=== PATIENT | female | born 1955 | race Caucasian/White ===

== ENCOUNTER 2020-06-04 18:50 | Outpatient (CLI) | payer SELFPAY ==
[2020-06-04 19:19] LABS: Basophils % 0.5 %; Eosinophils # 0.1 10^3/uL (0.0-0.8); Eosinophils % 1.3 %; Hematocrit 37.5 % (37.0-47.0); Lymphocytes # 1.7 10^3/uL (0.8-4.8); Lymphocytes % 26.4 %; Mean Corpuscular Hemoglobin 31.3 pg (28.0-34.0); Mean Corpuscular Volume 97.7 fL (81-99); Mean Platelet Volume 11.7 fL (7.4-10.4); Monocytes # 0.5 10^3/uL (0.2-0.9); Monocytes % 7.8 %; Neutrophils # 4.07 10^3/uL (1.8-7.7); Neutrophils % 63.8 %; Nucleated Red Blood Cells % 0 %; Platelet Count 226 10^3/cmm (130-400); Red Blood Count 3.84 10^6/uL (4.1-5.3); Red Cell Distribution Width 12.6 % (12.1-15.1); White Blood Count 6.4 10^3/uL (4.0-10.0)
[2020-06-04 21:30] LABS: Alanine Aminotransferase 9 U/L (0-33); Albumin Level 4.5 g/dL (3.5-5.2); Alkaline Phosphatase 77 IU/L (35-105); Anion Gap 13.1 (5-19); Aspartate Amino Transferase 17 U/L (0-32); Blood Urea Nitrogen 18 mg/dL (8-23); Calcium 9.2 mg/dL (8.5-10.5); Carbon Dioxide 26 mmol/L (22-29); Chloride 104 mmol/L (98-107); Globulin 2.6 g/dL (1.3-4.6); Glomerular Filtration Rate 62.8 mL/min (90-130); Glucose 98 mg/dL (65-115); Osmolality Calculated 284 mOsm/kg (285-295); Potassium 4.1 mmol/L (3.5-5.1); Sodium 139 mmol/L (136-145); Total Bilirubin 0.3 mg/dL (0.15-1.2); Total Protein 7.1 g/dL (6.6-8.7)
[2020-06-04 21:42] LABS: Uric Acid 4.3 mg/dL (2.4-5.7)
== END 2020-06-04 18:51 | disposition home or self-care (01) ==
LOC: LAB 18:51
PROVIDERS: Visit Provider General Practice
DX: Z00.00 Encounter for general adult medical examination without abnormal findings (principal)
CPT/HCPCS: 80053; 84550; 85025

== ENCOUNTER → 2021-09-27 10:50 | Outpatient (BNVA) | payer OTHER, SELFPAY | PROVIDERS: Visit Provider Nurse Practitioner | DX: Z20.822 Contact with and (suspected) exposure to COVID-19 (principal) | CPT/HCPCS: 87635 ==

== ENCOUNTER → 2022-03-18 08:39 | Outpatient (BNVA) | payer MEDICAID, SELFPAY | PROVIDERS: PCP Family Medicine; Visit Provider Family Medicine | DX: I10 Essential (primary) hypertension (principal); Z91.030 Bee allergy status; K21.9 Gastro-esophageal reflux disease without esophagitis; J30.89 Other allergic rhinitis | CPT/HCPCS: 80053; 80061; 82043; 85025 ==

== ENCOUNTER 2022-04-07 08:58 | Outpatient (CLI) | payer MEDICAID, SELFPAY ==
[2022-04-07 09:14] VITALS: BMI 24.7
--- NOTE | 2022-04-07 09:14 | ECG_ITS ---
[facility] Test Date: 2022-04-07 Pat Name: Divya Ta Department: Room: Gender: Female Driving Instructor: Ludmila Willis : 1955 Requested By: Jillian Carlos Order Number: [id number] Brenden MD: Lidia Cannon M.D. Interpretive Statements NAME OF STUDY: EXERCISE SESTAMIBI STRESS TEST INDICATION: Atypical Chest Pain Baseline blood pressure of 172/82 mm Hg, heart rate of 84 beats per minute and oxygen saturation of 91%. EKG showed sinus rhythm with PAC's. LBBB. ??? The patient exercised for 2 minutes and 58 seconds on a [standard Micheal protocol]. Patient attained a maximum heart rate of 162 beats per minute( 105 % of the maximum predicted heart rate) with a blood pressure at the peak exercise of 235/80 mm Hg and oxygen saturation of 98%. The EKG at the peak exercise revealed sinus tachycardia with LBBB. Patient did not have any significant arrhythmis with the exercise. Patient developed chest pain 1 min 50 seconds into exercise that resolved in recovery. During the recovery phase, there were no new changes. ??? Blood pressure at the end of the recovery phase was 169/82 mm Hg with a heart rate of 79 beats per minute and oxygen saturation of 95%. ??? CONCLUSION: 1. Uninterpretable EKG response to treadmill exercise d/t baseline LBBB. 2. No exercise-induced cardiac arrhythmia. Patient did have chest pain during exercise. 3. Baseline hypertension with hypertensive response and exagerrated heart rate response to exercise. 4. Decreased exercise tolerance, attained a maximum of 4.6 METs. 5. Perfusion portion of the study will be reported separately. Electronically Signed On 04-17-2022 18:04:08 CDT by Lidia Cannon M.D. [id number]
--- NOTE | 2022-04-07 09:15 | NMCV_ITS ---
NM yoni perf SPECT r/s* [id number] Divya Ta Age: 66 Gender: F : 1955 Exam Date: 04/07/2022 09:15 Ordering Phys: Jillian Carlos DO Technologist: MARYANN Medina Exam Location: [facility] Indications: CHEST PAIN STRESS TEST Please see separate stress test report in [facility] for full findings IMAGE PROTOCOL Rest/Stress 1 Radiopharmaceutical Dose (mCi) Administration Site Administered by Rest: Tc-99m 10.7 IV MARYANN Maddox Sestamibi Stress:Tc-99m 32.7 IV MARYANN Maddox Sestamibi Rest: 07-Apr-2022 60 Discovery 630 Stress: 07-Apr-2022 15 Discovery 630 Radiopharmaceutical was injected at 103% maximum heart rate. Images obtained in supine and prone position. SPECT RESULTS Technical Quality: Excellent Raw Data Analysis: Normal Image Corrections: No attenuation or motion correction applied Summed Stress Score: 0 Summed Rest Score: 0 Summed Difference Score: 0 PERFUSION FINDINGS SPECT images demonstrate homogeneous tracer distribution throughout the myocardium. FUNCTIONAL RESULTS (calculated via Gated SPECT) Stress Image LV EF (%): 53 Stress EDV (mL):112 TID: 0.91 Stress ESV (mL):53 FUNCTIONAL FINDINGS: The left ventricle is normal in size. Transient Ischemia Dilatation of 0.91. The left ventricular ejection fraction is low normal with a value of 53%. There is normal left ventricular wall thickening. IMPRESSIONS 1. Myocardial perfusion imaging is normal. 2. Overall left ventricular systolic function is low normal without regional wall motion abnormalities, LVEF=53%. 3. EKG portion of the study will be reported separately. Lidia Cannon MD (Electronically Signed) Final Date: 17 April 2022 18:37 S
[2022-04-07 11:08] VITALS: BP 169/82; PULSE 77
== END 2022-04-07 08:59 | disposition home or self-care (01) ==
LOC: CDL 09:00
PROVIDERS: PCP Family Medicine; Visit Provider Family Medicine
DX: R06.02 Shortness of breath (principal)
CPT/HCPCS: 78452; 93017; A9500

== ENCOUNTER → 2022-05-31 14:04 | Outpatient (BNVA) | payer MEDICAID, SELFPAY | PROVIDERS: PCP Family Medicine; Visit Provider Internal Medicine Cardiovascular Disease | DX: R07.89 Other chest pain (principal); R94.31 Abnormal electrocardiogram [ECG] [EKG]; I10 Essential (primary) hypertension; R06.09 Other forms of dyspnea | CPT/HCPCS: 93005; 99204 ==

== ENCOUNTER → 2022-06-16 11:18 | Outpatient (BNVA) | payer MEDICAID, SELFPAY | PROVIDERS: PCP Family Medicine; Visit Provider Family Medicine | DX: E78.5 Hyperlipidemia, unspecified (principal); J30.89 Other allergic rhinitis; D17.1 Benign lipomatous neoplasm of skin and subcutaneous tissue of trunk; E78.00 Pure hypercholesterolemia, unspecified; I10 Essential (primary) hypertension | CPT/HCPCS: 80053; 80061 ==

== ENCOUNTER 2022-08-02 13:05 | Outpatient (CLI) | payer MEDICAID, SELFPAY ==
--- NOTE | 2022-08-02 13:30 | USCV_ITS ---
Divya Ta Age: 67 Gender: F : 1955 Exam Date: 08/02/2022 13:22 Ordering Phys: Nat Goldstein MD ([email or web address]) Technologist: Brodie Espinoza [place] [facility] [place]: ? ef BP: 150 / 80 HR: 70 Rhythm: Sinus Technical Quality: Adequate MEASUREMENTS (Male / Female) Normal Values 2D ECHO LV Diastolic Diameter PLAX 4.8 cm 4.2 - 5.9 / 3.9 - 5.3 cm IVS Diastolic Thickness 1.1 cm 0.6 - 1.0 / 0.6 - 0.9 cm LVPW Diastolic Thickness 1.1 cm 0.6 - 1.0 / 0.6 - 0.9 cm LVOT Diameter 2.0 cm LV Ejection Fraction MOD 2C 59.2 % LV Ejection Fraction 2C AL 58.8 % LA Diameter 3.3 cm M-MODE Aortic Annulus Diameter 3.1 cm LA Ao Ratio MM 1.2 MV E Point Septal Separation 1.6 cm DOPPLER AV Peak Velocity 123.0 cm/s LVOT Peak Velocity 76.0 cm/s AV Area Cont Eq vti 2.4 cm squared AV Area Cont Eq pk 1.9 cm squared MV Area PHT 5.0 cm squared Mitral E to A Ratio 0.5 MV E' Velocity 27.0 cm/s Mitral E to MV E' Ratio 5.8 Mitral E to LV E' Lateral Ratio 5.4 Mitral E to LV E' Septal Ratio 6.4 TR Peak Velocity 218.3 cm/s TR Peak Gradient 19.1 mmHg TV Peak E Velocity 113.0 cm/s Right Atrial Pressure 3.0 mmHg Pulmonary Artery Systolic Pressu 22.1 mmHg RV Acceleration Time 0.1 s FINDINGS Left Ventricle Normal LV size with diminished ejection fraction of 45 to 50%, visual.mild left ventricular hypertrophy. Abnormal septal motion consistent with conduction abnormality. Grade I/IV diastolic dysfunction (abnormal relaxation filling pattern), normal to mildly elevated filling pressures. Right Ventricle Normal right ventricular size and systolic function. Right Atrium Normal right atrial size. Left Atrium Normal left atrial size. Mitral Valve Thickened mitral valve. Moderate mitral valve regurgitation. Aortic Valve Thickened aortic valve. Tricuspid Valve Trace to mild tricuspid valve regurgitation. Pulmonic Valve Pulmonic valve not well visualized. Pericardium No pericardial effusion. Aorta Normal aortic annulus size. IVC Normal inferior vena cava. CONCLUSIONS Normal LV size with diminished ejection fraction of 45 to 50%, visual.mild left ventricular hypertrophy. Abnormal septal motion consistent with conduction abnormality. Grade I/IV diastolic dysfunction (abnormal relaxation filling pattern), normal to mildly elevated filling pressures. Thickened mitral valve. Moderate mitral valve regurgitation. Thickened aortic valve. Trace to mild tricuspid valve regurgitation. Estimated pulmonary artery peak systolic pressure 22 mmHg There is no pericardial effusion. There are no intracardiac masses. No similar previous studies are available for comparison Dr Nat Goldstein MD [facility] (Electronically Signed) Final Date: 03 August 2022 10:06 S
== END 2022-08-02 13:06 | disposition home or self-care (01) ==
LOC: RAD 13:07
PROVIDERS: PCP Family Medicine; Visit Provider Internal Medicine Cardiovascular Disease
DX: R06.09 Other forms of dyspnea (principal); I08.3 Combined rheumatic disorders of mitral, aortic and tricuspid valves
CPT/HCPCS: 93306

== ENCOUNTER → 2022-09-08 11:06 | Outpatient (BNVA) | payer MEDICAID, SELFPAY | PROVIDERS: PCP Family Medicine; Visit Provider Nurse Practitioner Family | DX: I10 Essential (primary) hypertension (principal) | CPT/HCPCS: 99213 ==

== ENCOUNTER 2022-10-26 08:09 | Outpatient (CLI) | payer MEDICAID, SELFPAY ==
--- NOTE | 2022-10-26 08:25 | FL_ITS ---
WS: [id number] FL barium swallow [id number] REASON FOR EXAM: DYSPHAGIA/GASTRO ESOPHAGEAL REFLUX DZ W/O ESOPHAGITIS FLUOROSCOPY TIME: 1min [id number] # OF SPOT FILMS: Multiple FINDINGS: Patient was evaluated in the upright AP and lateral positions and in the prone JIMENEZ position. The swallowing of barium from the oropharynx to the fundus of the stomach was evaluated fluoroscopica lly and documented with multiple spot films. Normal motility of the cervical esophagus. No aspiration. Normal thoracic esophagus with normal motility and no extrinsic or intrinsic mass effect. Area small sliding hiatal hernia with no stricture. No reflux demonstrated. FL/FL barium swallow [id number] IMPRESSION: No significant abnormality of the esophagus.
--- NOTE | 2022-10-26 08:25 | CT_ITS ---
WS: [id number] CT NECK TECHNIQUE: Contrast-enhanced CT of the neck with coronal and sagittal reformatted images. CLINICAL INFORMATION: DYSPHAGIA/GASTRO ESOPHAGEAL REFLUX DZ COMPARISON: None. DLP: 169.[address] scans at [facility] use at least one of these dose optimization techniques: automated e xposure control; mA and/or kV adjustment per patient size (includes targeted exams where dose is matc hed to clinical indication); or iterative reconstruction. FINDINGS: Parotid glands are normal. Normal submandibular glands. Normal posterior nasopharynx. Normal paraphar yngeal fat. Normal thyroid gland. Fibrosis in the lung apices. Normal posterior nasopharynx. Normal p arapharyngeal fat. Normal submandibular glands. Normal parotid glands. No evidence of supraglottic or glottic mass. Normal vallecula and piriform sinuses. Normal subglottic airway.Slight anterolisthesis C4 on C5. Prominent retromandibular and anterior jugular vein. No cerv ical lymphadenopathy. CT/CT neck w con* [id number] IMPRESSION: 1. No evidence of supraglottic or glottic mass. 2. Normal salivary glands. 3. Normal thyroid gland. 4. No cervical lymphadenopathy. 5. No acute neck findings.
[2022-10-26] MEDS: iohexol 350 mg/mL 500 mL Btl (per mL) IV (10:47)
[2022-10-26 10:48] LABS: Blood Urea Nitrogen 12 mg/dL (8-23); Glomerular Filtration Rate 62.3 mL/min (90-130)
== END 2022-10-26 08:10 | disposition home or self-care (01) ==
LOC: RAD 08:10
PROVIDERS: PCP Family Medicine; Visit Provider Otolaryngology
DX: R13.10 Dysphagia, unspecified (principal); K21.9 Gastro-esophageal reflux disease without esophagitis
CPT/HCPCS: 70491; 74220; 82565; 84520; Q9967

== ENCOUNTER → 2022-12-20 10:04 | Outpatient (BNVA) | payer MEDICAID, SELFPAY | PROVIDERS: PCP Family Medicine; Visit Provider Internal Medicine Cardiovascular Disease | DX: I10 Essential (primary) hypertension (principal); R06.09 Other forms of dyspnea; E78.00 Pure hypercholesterolemia, unspecified; I42.8 Other cardiomyopathies | CPT/HCPCS: 99214 ==

== ENCOUNTER 2023-04-23 22:44 | Emergency (ER) | payer MEDICAID, SELFPAY ==
[2023-04-23 22:47] VITALS: BP 194/106; PULSE 82; RESP 16; TEMP 36.5; O2SAT 100; BMI 21.9
--- NOTE | 2023-04-23 23:22 | ED_ITS ---
HPI - Animal Bite General: Chief Complaint: Animal Bite Stated Complaint: Left Arm Cat Bite Time Seen by Provider: 04/23/23 23:22 History of Present Illness: 67-year-old female comes in today for complaints of injury to the left hand when her cat that she was carrying tail got shut in the door causing it to bite down on her left hand. Patient sustained a laceration to the palm of the left hand at the base of the index finger. Patient has normal movement of the finger. Patient reports that her tetanus is up-to-date. Patient has a history of hypertension, high cholesterol and allergies. Review of Systems General: Reports: 10 or more systems reviewed and unremarkable except in HPI and below Musc: Reports: extremity pain Skin/Breast: Reports: new lesions PFSH ED PFSH: Medical History Allergic rhinitis due to allergen Excessive cerumen in both ear canals Surgical History History of bladder repair surgery Dr. Hull History of hernia repair Ventral History of hysterectomy History of repair of right rotator cuff Family History Other CAD (coronary artery disease) Cancer Lung disease Denies family history of Diabetes Clotting disorder Dementia Hyperlipidemia Psychiatric illness Chronic kidney disease (CKD) Suicide Anesthesia complication Bleeding disorder Family history of premature coronary artery disease Hypertension Stroke Social History Smoking and tobacco status: never smoked Alcohol intake: never Physical Exam Const: COMMON NORMALS: alert HENMT: COMMON NORMALS: normocephalic HEAD & SCALP: normocephalic Resp: COMMON NORMALS: normal respiratory effort and clear to auscultation bilaterally AUSCULTATION: clear to auscultation bilaterally Cardio: COMMON NORMALS: regular rate RATE: regular rate Back/Pelvis: COMMON NORMALS: thoracic and lumbar spine normal to inspection Extremity: LEFT UPPER EXTREMITY: Yes lower arm (2 linear scratches approximately 6 cm each) and Yes hand & digits (Irregular laceration approximately 2 cm) Left hand and digits: Yes inspection, Yes palpation, Yes ROM, Yes neurovascular exam and Yes tendon exam Neuro: SENSORIUM/ORIENTATION: Yes alert Skin: TRAUMA: abrasion (Left forearm) and laceration (Left hand) Procedures Laceration Laceration 1: Site: hand Side (If applicable): left Size (cm): 2 Description: irregular Local Anesthetic: lidocaine 1% Amount of anesthesia used (mL): 4 Pre-repair: wound explored and irrigated extensively Skin layer closed with: nylon Size (cm): 5-0 Number of sutures: 3 Technique: simple, interrupted Course Vital Signs: Vital signs: Vital Signs Temperature 97.7 F 04/23/23 22:47 Pulse Rate 82 04/23/23 22:47 Respiratory Rate 16 04/23/23 22:47 Blood Pressure 194/106 04/23/23 22:47 Pulse Oximetry 100 04/23/23 22:47 Oxygen Delivery Me thod Room Air 04/23/23 22:47 MDM - Animal Bite Medical Decision Making 67-year-old female comes in today with laceration sustained from a cat bite. Patient has an irregular laceration to the left palm at the base of the index finger. Normal range of motion is noted. No foreign body was noted. Diffe rential diagnosis includes not limited to fracture, foreign body, laceration, need for prophylaxis antibiotics.X-ray noted no obvious fracture but did recommend repeat films in 7 to 14 days as needed. Wound was thoroughly irrigated and closed with sutures loosely. Patient was recommended to follow-up with primary care in 3 to 5 days for recheck. Return to ED for worsening symptoms. Patient reported understanding of care plan and need for follow-up or return. Lab Data Radiology Impressions Hand X-Ray 04/23/23 23:53 IMPRESSION: 1. Linear lucencies seen at the lateral base of the 2nd proximal phalanx and the medial base of the 4th proximal phalanx on the AP image only, possible fractures cannot be ruled out. Followup imaging recommended in 7-14 days if clinical concern for fracture persists. 2. Soft tissue emphysema and mild soft tissue swelling at the proximal left 2nd finger. 3. Incidental/nonacute findings are listed in the report. Discharge Plan Discharge Patient Disposition: Home Clinical Impression: Cat bite Qualifiers: Encounter type: initial encounter Qualified Code(s): W55.01XA - Bitten by cat, initial encounter Condition: Stable Prescriptions: New amoxicillin-pot clavulanate 875-125 mg tablet 1 tab PO BID Qty: 14 0RF hydrocodone-acetaminophen 5-325 mg tablet 1 tab PO Q6H PRN (Reason: pain (scale score 7-10)) Qty: 10 0RF No Action carvedilol 3.125 mg tablet 3.125 mg PO BID Qty: 180 1RF Rx Instructions: must administer with a meal/food epinephrine [EpiPen 2-Ulysses] 0.3 mg/0.3 mL auto-injector 0.3 mg IM Q4H PRN (Reason: anaphylaxis) Qty: 2 1RF fluticasone propionate 50 mcg/actuation spray,suspension 1 spray intranasal BID Qty: 16 3RF Rx Instructions: Please dispense a 90 day supply losartan 50 mg tablet 50 mg PO DAILY Qty: 90 1RF atorvastatin 40 mg tablet 40 mg PO DAILY Qty: 90 1RF nifedipine 30 mg tablet extended release 24hr See Rx Instructions .ROUTE .COMPLEX Qty: 30 1RF Dose Instruction: TAKE ONE TABLET BY MOUTH DAILY Rx Instructions: TAKE ONE TABLET BY MOUTH DAILY Discharge Orders: Discharge ED (Routine); Ordered 04/24/23 Ordered By: David Tucker Referrals: Jillian Carlos DO [Primary Care Provider] - Discharge Diet: Usual diet Discharge Activity: Increase activity as tolerated Patient Instructions: Laceration (ED) Activity Restrictions/Additional Instructions: Keep wound clean and dry. You may change the dressing only if it is soiled or wet. Otherwise, it is important keep the wound as clean and dry as possible for the next 48 hours. After that she can wash the wound with some mild soap and water and recover. Take antibiotics as directed. Follow-up with primary care for further instructions. Return to emergency department for new concerns. Sutures need to come out in 7 to 10 days. Coding Level of Care Code ED Business Services Coordinator for Carmen Cedeno
--- NOTE | 2023-04-23 23:53 | XRR_ITS ---
PROCEDURE INFORMATION: Exam: XR Left Hand Exam date and time: 04/24/2023 12:20 AM Age: 67 years old Clinical indication: Injury or trauma; Puncture; Left; Index finger; Patient HX: Cat bite to volar surface of hand at base of 2nd mcp joint. TECHNIQUE: Imaging protocol: Radiologic exam of the left hand. Views: 3 or more views. COMPARISON: No relevant prior studies available. FINDINGS: Bones/joints: Linear lucencies seen at the lateral base of the 2nd proximal phalanx and the medial base of the 4th proximal phalanx on the AP image only, possible fractures cannot be ruled out. No dislocation. Bones are mildly osteopenic. Soft tissues: Soft tissue emphysema and mild soft tissue swelling at the proximal left 2nd finger. No radiopaque foreign body. XR/XR hand LT min 3V* [id number] IMPRESSION: 1. Linear lucencies seen at the lateral base of the 2nd proximal phalanx and the medial base of the 4th proximal phalanx on the AP image only, possible fractures cannot be ruled out. Followup imaging recommended in 7-14 days if clinical concern for fracture persists. 2. Soft tissue emphysema and mild soft tissue swelling at the proximal left 2nd finger. 3. Incidental/nonacute findings are listed in the report.
[2023-04-24] MEDS: ceFAZolin 1,000 MG in water for injection-sterile 2.5 ML 2.5 MG IM (00:13)
[2023-04-24] MEDS: HYDROcodone-acetaminophen 7.5-325 mg Tablet 1 TAB PO (00:14)
[2023-04-24] MEDS: bacitracin ointment Pkt 1 EACH TOPICAL (01:18)
[2023-04-24 01:41] VITALS: BP 194/106; PULSE 82; RESP 16; TEMP 36.5; O2SAT 100
== END 2023-04-24 01:42 | disposition home or self-care (01) ==
PROVIDERS: Emergency Provider Nurse Practitioner Family; PCP Family Medicine
DX: S61.452A Open bite of left hand, initial encounter (principal); W55.01XA Bitten by cat, initial encounter
CPT/HCPCS: 12001; 73130; 96372; 99284; J0690

== ENCOUNTER 2023-05-04 16:21 | Outpatient (CLI) | payer MEDICAID, SELFPAY ==
--- NOTE | 2023-05-04 16:36 | XRR_ITS ---
PROCEDURE INFORMATION: Exam: XR Left Hand Exam date and time: 05/04/2023 4:37 PM Age: 67 years old Clinical indication: Injury or trauma; Other: Cat bite; Puncture; Hand; Left; Injury date: 11 days ago; Additional info: Cat bite / index finger swelling TECHNIQUE: Imaging protocol: Radiologic exam of the left hand. Views: 3 or more views. COMPARISON: CR (UP EXM, ) 04/24/2023 12:20 AM FINDINGS: Bones/joints: No fracture is seen with today's exam. Appearance of the base of the 2nd and 4th proximal phalanges with prior exam likely related to appearance of the trabecula. No other significant or acute osseous abnormality. Soft tissues: Suggestion of mild interval decrease in soft tissue swelling with prior exam. No radiopaque soft tissue foreign body density is seen. XR/XR hand LT min 3V* [id number] IMPRESSION: No fracture identified.
== END 2023-05-04 16:22 | disposition home or self-care (01) ==
PROVIDERS: PCP Family Medicine; Visit Provider Family Medicine
DX: M79.89 Other specified soft tissue disorders (principal); W55.01XA Bitten by cat, initial encounter
CPT/HCPCS: 73130

== ENCOUNTER → 2023-08-03 16:47 | Outpatient (BNVA) | payer MEDICAID, SELFPAY | PROVIDERS: PCP Family Medicine; Visit Provider Emergency Medicine | DX: S69.92XA Unspecified injury of left wrist, hand and finger(s), initial encounter (principal); X58.XXXA Exposure to other specified factors, initial encounter | CPT/HCPCS: 73110 ==

== ENCOUNTER → 2023-11-21 15:33 | Outpatient (BNVA) | payer MEDICAID, SELFPAY | PROVIDERS: PCP Family Medicine; Visit Provider Specialist | DX: G56.03 Carpal tunnel syndrome, bilateral upper limbs (principal); M79.642 Pain in left hand; G56.92 Unspecified mononeuropathy of left upper limb | CPT/HCPCS: 95910; 95911 ==

== ENCOUNTER → 2024-01-18 11:31 | Outpatient (BNVA) | payer MEDICARE, SELFPAY | PROVIDERS: PCP Family Medicine; Visit Provider Family Medicine | DX: I10 Essential (primary) hypertension (principal) | CPT/HCPCS: 80053; 80061; 82043; 85025 ==

== ENCOUNTER → 2024-05-15 15:36 | Outpatient (BNVA) | payer MEDICARE, SELFPAY | DX: E78.00 Pure hypercholesterolemia, unspecified (principal); I10 Essential (primary) hypertension | CPT/HCPCS: 80053; 80061 ==

== ENCOUNTER → 2024-06-19 15:00 | Outpatient (BNVA) | payer MEDICARE, SELFPAY | PROVIDERS: Visit Provider Internal Medicine | DX: I10 Essential (primary) hypertension (principal); R06.09 Other forms of dyspnea; E78.00 Pure hypercholesterolemia, unspecified; I42.8 Other cardiomyopathies | CPT/HCPCS: 36415; 80048; 83880; 99214 ==

== ENCOUNTER 2024-07-18 07:25 | Outpatient (CLI) | payer MEDICARE, SELFPAY ==
--- NOTE | 2024-07-18 07:45 | USCV_ITS ---
Divya Ta Age: 69 Gender: F : 1955 Exam Date: 07/18/2024 07:46 Ordering Phys: Richard Alberto M.D ([email or web address]) Technologist: Serenity Chandra [place] [facility] [place] Indication: SHORTNESS OF BREATH BP: 124 / 70 HR: 59 Rhythm: Sinus Technical Quality: Adequate MEASUREMENTS (Male / Female) Normal Values 2D ECHO LV Diastolic Diameter PLAX 5.4 cm 4.2 - 5.9 / 3.9 - 5.3 cm IVS Diastolic Thickness 1.1 cm 0.6 - 1.0 / 0.6 - 0.9 cm IVS Systolic Thickness 1.7 cm LVPW Diastolic Thickness 1.9 cm 0.6 - 1.0 / 0.6 - 0.9 cm LVPW Systolic Thickness 2.0 cm LVOT Diameter 2.0 cm LV Ejection Fraction 2D Teich 65.9 % LV Ejection Fraction MOD 4C 39.3 % LV Ejection Fraction MOD 2C 54.3 % LV Ejection Fraction 2C AL 57.2 % LA Diameter 3.5 cm RA Systolic Volume 4C AL 29.3 ml RA Systolic Volume 4C MOD 28.6 ml LA Sys Volume AL 52.8 cm cubed LA Sys Volume Index AL 31.9 cm cubed/m squared Aorta at Sinotubular Diameter 2.1 cm IVC Diameter 1.1 cm M-MODE LA Ao Ratio MM 1.0 AV Cusp Separation MM 1.4 cm DOPPLER AV Peak Velocity 144.0 cm/s LVOT Peak Velocity 94.0 cm/s AV Area Cont Eq vti 2.1 cm squared AV Area Cont Eq pk 2.1 cm squared MV Peak Velocity 83.0 cm/s MV Area PHT 5.4 cm squared Mitral E to A Ratio 0.9 TR Peak Velocity 250.0 cm/s TR Peak Gradient 25.0 mmHg TR Mean Velocity 217.0 cm/s TR Mean Gradient 20.4 mmHg TR Velocity Time Integral 97.0 cm TV Peak E Velocity 43.0 cm/s Right Atrial Pressure 3.0 mmHg Pulmonary Artery Systolic Pressu 28.0 mmHg PV Peak Velocity 107.0 cm/s RV Ejection Time 0.3 s FINDINGS Left Ventricle Mildly increased left ventricular cavity size. Normal left ventricular wall thickness. Mildly decreased left ventricular systolic function. Global left ventricular hypokinesis. Left ventricular ejection fraction is estimated at 45-50 %. Grade I/IV diastolic dysfunction (abnormal relaxation filling pattern), normal to mildly elevated filling pressures. Right Ventricle The right ventricle is normal in size and function. Right Atrium The right atrium is normal in size. Left Atrium Severely increased left atrial size. Mitral Valve Moderately thickened mitral valve. No mitral valve stenosis. Moderate mitral valve regurgitation. Aortic Valve Mild aortic valve calcification. No aortic valve stenosis. Trace to mild aortic valve regurgitation. Tricuspid Valve Mild tricuspid valve regurgitation. Pulmonic Valve Structurally normal pulmonic valve without significant stenosis. There is no pulmonic regurgitation. Pericardium Normal pericardium without effusion. Aorta Normal ascending aorta dimension. IVC The inferior vena cava appears normal. CONCLUSIONS Mildly increased left ventricular cavity size. Normal left ventricular wall thickness. Mildly decreased left ventricular systolic function. Global left ventricular hypokinesis. Left ventricular ejection fraction is estimated at 45-50 %. Grade I/IV diastolic dysfunction (abnormal relaxation filling pattern), normal to mildly elevated filling pressures. Severely increased left atrial size. Moderately thickened mitral valve. No mitral valve stenosis. Moderate mitral valve regurgitation. There is no pericardial effusion. Pulmonary artery systolic pressure is within normal limits. Right atrial pressure is around 10 mm of mercury. Flaco Vences MD (Electronically Signed) Final Date: 18 July 2024 10:41 S
== END 2024-07-18 07:26 | disposition home or self-care (01) ==
PROVIDERS: Visit Provider Internal Medicine
DX: I08.1 Rheumatic disorders of both mitral and tricuspid valves (principal); I70.0 Atherosclerosis of aorta; R06.02 Shortness of breath
CPT/HCPCS: 93306

== ENCOUNTER → 2024-09-10 15:05 | Outpatient (BNVA) | payer MEDICARE, SELFPAY | DX: R10.9 Unspecified abdominal pain (principal) | CPT/HCPCS: 81000 ==

== ENCOUNTER 2024-09-24 10:27 | Outpatient (CLI) | payer MEDICARE, SELFPAY ==
--- NOTE | 2024-09-24 10:29 | CTR_ITS ---
PROCEDURE INFORMATION: Exam: CT Abdomen With Contrast Exam date and time: 09/24/2024 10:46 AM Age: 69 years old Clinical indication: Other: Left flank pain; Prior surgery; Surgery date: 6+ months; Surgery type: Hyst, hernia, appy TECHNIQUE: Imaging protocol: Computed tomography of the abdomen with contrast. Radiation optimization: All CT scans at this facility use at least one of these dose optimization techniques: automated exposure control; mA and/or kV adjustment per patient size (includes targeted exams where dose is matched to clinical indication); or iterative reconstruction. 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 Liver: Normal. No mass. Gallbladder and biliary ducts: Normal. No calcified stones. No ductal dilation. Pancreas: Normal. No ductal dilation. Spleen: Normal. No splenomegaly. Adrenal glands: Normal. No mass. Kidneys: Normal. No hydronephrosis. Stomach and bowel: Visualized stomach and bowel are unremarkable. No obstruction. No mucosal thickening. Appendix: Appendectomy. Intraperitoneal space: Unremarkable. No free air. No significant fluid collection. Vasculature: Small amount of arterial calcification. Otherwise, unremarkable. Lymph nodes: Unremarkable. No enlarged lymph nodes. Bones/joints: Moderate scoliosis. Minimal spondylosis. Otherwise, unremarkable. Soft tissues: Otherwise, unremarkable visualized body wall. Otherwise, unremarkable soft tissues. CT/CT abdomen w con* [id number] IMPRESSION: 1. No acute findings. 2. Additional details as above.
[2024-09-24 10:48] LABS: Blood Urea Nitrogen 17 mg/dL (8-23); Glomerular Filtration Rate 70.9 mL/min (90-130)
[2024-09-24] MEDS: iohexol 350 mg/mL 500 mL Btl (per mL) IV (10:53)
== END 2024-09-24 10:28 | disposition home or self-care (01) ==
LOC: RAD 10:27
DX: R10.9 Unspecified abdominal pain (principal); M41.34 Thoracogenic scoliosis, thoracic region; Z90.49 Acquired absence of other specified parts of digestive tract; Z90.710 Acquired absence of both cervix and uterus
CPT/HCPCS: 74160; 82565; 84520

== ENCOUNTER → 2024-09-25 13:29 | Outpatient (BNVA) | payer MEDICARE, SELFPAY | PROVIDERS: Visit Provider Internal Medicine | DX: I10 Essential (primary) hypertension (principal); R06.09 Other forms of dyspnea; E78.00 Pure hypercholesterolemia, unspecified; I42.8 Other cardiomyopathies | CPT/HCPCS: 99214 ==

== ENCOUNTER → 2024-10-16 09:44 | Outpatient (BNVA) | payer MEDICARE, SELFPAY | PROVIDERS: Referring Provider Internal Medicine; Visit Provider Internal Medicine | DX: I10 Essential (primary) hypertension (principal); R06.09 Other forms of dyspnea; E78.00 Pure hypercholesterolemia, unspecified; I42.8 Other cardiomyopathies | CPT/HCPCS: 36415; 80048; 83880; 99214 ==

== ENCOUNTER 2024-10-19 11:03 | Emergency (ER) | payer MEDICARE, SELFPAY ==
[2024-10-19 11:06] VITALS: BP 174/77; PULSE 77; RESP 17; TEMP 36.6; O2SAT 97; BMI 23.9
--- NOTE | 2024-10-19 11:07 | CTR_ITS ---
PROCEDURE INFORMATION: Exam: CT Left Lower Extremity, Hip Exam date and time: 10/19/2024 11:20 AM Age: 69 years old Clinical indication: Injury or trauma; Fall; Blunt trauma; Hip; Left TECHNIQUE: Imaging protocol: CT of the left lower extremity without contrast was performed. Exam focused on the hip. Radiation optimization: All CT scans at this facility use at least one of these dose optimization techniques: automated exposure control; mA and/or kV adjustment per patient size (includes targeted exams where dose is matched to clinical indication); or iterative reconstruction. COMPARISON: CT abdomen pelvis w con* [id number] 04/29/2018 12:50 PM RADIATION DOSE METRICS: Total DLP (mGy-cm): 232 FINDINGS: Bones/joints: Normal. No acute fracture or dislocation. No lytic or sclerotic bone lesion. No significant arthritic changes. Soft tissues: Normal. CT/CT hip LT wo con* [id number] IMPRESSION: Unremarkable CT.
--- NOTE | 2024-10-19 11:07 | CTR_ITS ---
PROCEDURE INFORMATION: Exam: CT Lumbar Spine Without Contrast Exam date and time: 10/19/2024 11:20 AM Age: 69 years old Clinical indication: Injury or trauma; Fall; Blunt trauma (contusions or hematomas) TECHNIQUE: Imaging protocol: Computed tomography of the lumbar spine without contrast. Radiation optimization: All CT scans at this facility use at least one of these dose optimization techniques: automated exposure control; mA and/or kV adjustment per patient size (includes targeted exams where dose is matched to clinical indication); or iterative reconstruction. COMPARISON: CT hip LT wo con* [id number] 10/19/2024 11:20 AM RADIATION DOSE METRICS: Total DLP (mGy-cm): 395.5 FINDINGS: Bones/joints: No acute fracture. Moderate osteopenia. Well-maintained disc spaces. No fracture, lytic, or sclerotic bone lesion. Normal alignment. No significant disc bulge or herniation. No severe spinal canal stenosis. No significant neural foraminal narrowing. Soft tissues: The paravertebral soft tissues are normal. CT/CT lumbar spine wo con* [id number] IMPRESSION: No acute findings.
--- NOTE | 2024-10-19 11:10 | ED_ITS ---
HPI - Fall General: Chief Complaint: Back Pain/Injury Stated Complaint: fall/ back pain Time Seen by Provider: 10/19/24 11:05 Source: patient and EMS Mode of arrival: EMS Limitations: no limitations History of Present Illness: 69-year-old female states that she nader ed today in the snow landing on her back. She states this happened just prior to arrival she has pain in her left hip along with her lower back. She is able to walk with assistance but pain was worse with that states pain currently is a 4 out of 10. Associated symptoms-after fall: Denies abdominal pain, chest pain, headache(s) or neck pain Related Data Home Medications Medication Instructions Recorded Confirmed fluticasone propionate 50 1 spray intranasal BID PRN 10/16/24 mcg/actuation nasal spray,suspension Previous Rx's Medication Instructions Recorded epinephrine 0.3 mg/0.3 mL 0.3 mg (0.3 mL) IM Q4H PRN 03/18/22 injection, auto-injector (EpiPen anaphylaxis #2 ea 2-Ulysses) betamethasone dipropionate 0.05 % 1 applic topical BID PRN skin 09/15/23 topical cream irritation #45 grams atorvastatin 40 mg tablet See Rx Instructions .Route 05/16/24 .COMPLEX #90 tabs carvedilol 3.125 mg tablet See Rx Instructions .Route 05/21/24 .COMPLEX #180 tabs nifedipine 30 mg tablet,extended See Rx Instructions .Route 09/01/24 release 24 hr .COMPLEX #90 tabs escitalopram oxalate 10 mg tablet 10 mg PO DAILY #90 tabs 09/10/24 (Lexapro) losartan 50 mg tablet See Rx Instructions .Route 09/10/24 .COMPLEX #90 tabs montelukast 10 mg tablet 10 mg PO DAILY #30 tabs 09/10/24 omeprazole 20 mg capsule,delayed 20 mg PO ONCE #30 caps 09/10/24 release furosemide 20 mg tablet (Lasix) 20 mg PO DAILY #60 tabs 10/17/24 potassium chloride 10 mEq 10 meq PO DAILY #60 caps 10/17/24 capsule,extended release Allergies Allergy/AdvReac Type Severity Reaction Status Date / Time sulfamethoxazole Allergy ALGY-Anaphy Verified 10/16/24 09:57 [From Bactrim] laxis trimethoprim [From Bactrim] Allergy ALGY-Anaphy Verified 10/16/24 09:57 laxis Review of Systems Const: Denies: fever(s), chills, body aches or change in appetite ENMT: Denies: throat pain or dental pain Card: Denies: chest pain Resp: Denies: dyspnea GI: Denies: abdominal pain, nausea, vomiting or diarrhea Musc: Reports: back pain and extremity pain; Denies: neck pain Skin/Breast: Denies: rash Neuro: Denies: headache(s) PFSH ED PFSH: Medical History Left flank pain Excessive cerumen in both ear canals Allergic rhinitis due to allergen Surgical History History of hysterectomy History of bladder repair surgery Dr. Hull History of hernia repair Ventral History of repair of right rotator cuff Family History Other CAD (coronary artery disease) Cancer Lung disease Denies family history of Diabetes Clotting disorder Dementia Hyperlipidemia Psychiatric illness Chronic kidney disease (CKD) Suicide Anesthesia complication Bleeding disorder Family history of premature coronary artery disease Hypertension Stroke Social History Smoking and tobacco/nicotine status: never used tobacco/nicotine Alcohol intake: current Alcohol intake frequency: holidays/special occasions only Substance/Drug Use: never Adopted: No service: No Current occupational exposures/hazards: No Physical Exam Const: COMMON NORMALS: no acute distress, patient oriented x3 and healthy appearing HENMT: COMMON NORMALS: normocephalic and atraumatic HEAD & SCALP: normocephalic and atraumatic Neck/C-Spine: COMMON NORMALS: full ROM and supple Chest: COMMONS NORMALS: normal inspection of the chest Resp: COMMON NORMALS: normal respiratory effort Cardio: COMMON NORMALS: regular rate RATE: regular rate Back/Pelvis: OTHER: Tenderness noted to left lower back and low back no obvious deformity Extremity: COMMON NORMALS: normal to inspection and full ROM Neuro: COMMON NORMALS: patient oriented x3, moves all extremities and no focal motor deficits Psych: COMMON NORMALS: mental status grossly normal, Normal thought process present and cooperative THOUGHT PROCESS: Normal thought process present Skin: COMMON NORMALS: no rashes or lesions noted and no wounds GENERAL SKIN EXAM: no rashes or lesions noted Course Vital Signs: Vital signs: Vital Signs Temperature 97.9 F 10/19/24 11:06 Pulse Rate 67 10/19/24 12:47 Respiratory Rate 16 10/19/24 12:47 Blood Pressure 142/68 10/19/24 12:47 Pulse Oximetry 99 10/19/24 12:47 Oxygen Delivery Me thod Room Air 10/19/24 11:06 MDM - Fall Medical Decision Making Patient presents with back and hip pain after a fall imaging here is negative for any fractures she is able ambulate she is stable for discharge follow-up with PCP return if worsening. Medical Records I reviewed the patient's medical records. Lab Data Radiology Impressions Hip CT 10/19/24 11:07 IMPRESSION: Unremarkable CT. Lumbar Spine CT 10/19/24 11:07 IMPRESSION: No acute findings. All radiology interpretation(s) finalized by discharge Discharge Plan Discharge Patient Disposition: Home Clinical Impression: Fall, Back pain Condition: Stable Prescriptions: No Action betamethasone dipropionate 0.05 % cream 1 applic topical BID PRN (Reason: skin irritation) Qty: 45 2RF omeprazole 20 mg capsule,delayed release(DR/EC) 20 mg PO ONCE Qty: 30 2RF montelukast 10 mg tablet 10 mg PO DAILY Qty: 30 2RF escitalopram oxalate [Lexapro] 10 mg tablet 10 mg PO DAILY Qty: 90 0RF losartan 50 mg tablet See Rx Instructions .ROUTE .COMPLEX Qty: 90 1RF Dose Instruction: TAKE ONE TABLET BY MOUTH DAILY Rx Instructions: TAKE ONE TABLET BY MOUTH DAILY epinephrine [EpiPen 2-Ulysses] 0.3 mg/0.3 mL auto-injector 0.3 mg IM Q4H PRN (Reason: anaphylaxis) Qty: 2 1RF carvedilol 3.125 mg tablet See Rx Instructions .ROUTE .COMPLEX Qty: 180 1RF Dose Instruction: TAKE ONE TABLET BY MOUTH TWICE DAILY * MUST ADMINISTER WITH A MEAL / FOOD * Rx Instructions: TAKE ONE TABLET BY MOUTH TWICE DAILY * MUST ADMINISTER WITH A MEAL / FOOD * fluticasone propionate 50 mcg/actuation spray,suspension 1 spray intranasal BID PRN Rx Instructions: Please dispense a 90 day supply atorvastatin 40 mg tablet See Rx Instructions .ROUTE .COMPLEX Qty: 90 1RF Dose Instruction: TAKE ONE TABLET BY MOUTH DAILY Rx Instructions: TAKE ONE TABLET BY MOUTH DAILY nifedipine 30 mg tablet extended release 24hr See Rx Instructions .ROUTE .COMPLEX Qty: 90 1RF Dose Instruction: TAKE ONE TABLET BY MOUTH DAILY Rx Instructions: TAKE ONE TABLET BY MOUTH DAILY furosemide [Lasix] 20 mg tablet 20 mg PO DAILY Qty: 60 3RF potassium chloride 10 mEq capsule, extended release 10 meq PO DAILY Qty: 60 3RF Discharge Orders: Discharge ED (Routine); Ordered 10/19/24 Ordered By: Franco Norris Referrals: Oliva Sr NP [Primary Care Provider] - Discharge Diet: Advance as tolerated Discharge Activity: Resume usual activity Patient Instructions: Back Pain (ED) Coding Level of Care Code ED Head Of Visual Merchandising for Carmen Cedeno
[2024-10-19] MEDS: HYDROcodone-acetaminophen 5-325 mg Tablet 1 TAB PO (11:31)
[2024-10-19] MEDS: ondansetron 4 MG Tablet PO (11:34)
[2024-10-19 12:47] VITALS: BP 142/68; PULSE 67; RESP 16; O2SAT 99
== END 2024-10-19 12:48 | disposition home or self-care (01) ==
PROVIDERS: Emergency Provider Emergency Medicine
DX: M54.50 Low back pain, unspecified (principal); M25.552 Pain in left hip; W19.XXXA Unspecified fall, initial encounter
CPT/HCPCS: 72131; 73700; 99284; Q0162

== ENCOUNTER → 2024-10-29 10:54 | Outpatient (BNVA) | payer MEDICARE, SELFPAY | DX: J02.9 Acute pharyngitis, unspecified (principal) | CPT/HCPCS: 87880 ==

== ENCOUNTER 2024-12-14 19:33 | Emergency (ER) | payer MEDICARE, SELFPAY ==
[2024-12-14] VITALS (7 sets, daily range): BP systolic 142–187; BP diastolic 58–104; PULSE 94–115; RESP 18–20; TEMP 37.6–38.4; O2SAT 94–100; BMI 22.6
--- NOTE | 2024-12-14 20:01 | CTR_ITS ---
PROCEDURE INFORMATION: Exam: CT Abdomen And Pelvis With Contrast Exam date and time: 12/14/2024 8:13 PM Age: 69 years old Clinical indication: Abdominal pain; Localized; Prior surgery; Surgery date: 6+ months; Surgery type: Ventral hernia repair. Hysterectomy; C/O left sided abd pain with fever. ; Additional info: Left abd pain TECHNIQUE: Imaging protocol: Computed tomography of the abdomen and pelvis with contrast. Radiation optimization: All CT scans at this facility use at least one of these dose optimization techniques: automated exposure control; mA and/or kV adjustment per patient size (includes targeted exams where dose is matched to clinical indication); or iterative reconstruction. Contrast material: OMNI 350; Contrast volume: 100 ml; Contrast route: INTRAVENOUS (IV); COMPARISON: CT abdomen w con* [id number] 09/24/2024 10:46 AM RADIATION DOSE METRICS: Total DLP (mGy-cm): 357.03 FINDINGS: Liver: Normal. No mass. Gallbladder and biliary ducts: Normal. No calcified stones. No ductal dilation. Pancreas: Normal. No ductal dilation. Spleen: Normal. No splenomegaly. Adrenal glands: Normal. No mass. Kidneys and ureters: Normal. No hydronephrosis. Stomach and bowel: There is abnormal wall thickening and mucosal enhancement of the entire colon. No signs of bowel obstruction. Appendix: No evidence of appendicitis. Intraperitoneal space: Unremarkable. No free air. No significant fluid collection. Vasculature: There is scattered calcific plaque involving the abdominal aorta and iliac arteries. The abdominal aorta is free of aneurysm and dissection. Lymph nodes: Unremarkable. No enlarged lymph nodes. Urinary bladder: Unremarkable as visualized. Reproductive: The uterus is surgically absent. Bones/joints: Multilevel degenerative changes involve the spine. No acute bony abnormality. Soft tissues: Unremarkable. Other findings: Image quality degraded by motion artifact. CT/CT abdomen pelvis w con* [id number] IMPRESSION: Pancolitis
[2024-12-14 20:04] LABS: Basophils % 0.2 %; Hematocrit 34.5 % (36-47); Lymphocytes # 0.5 10^3/uL (0.8-4.8); Lymphocytes % 4.3 %; Mean Corpuscular Hemoglobin 31.7 pg (27-33); Mean Corpuscular Volume 95.8 fl (85-98); Mean Platelet Volume 10.2 fL (7.4-10.4); Monocytes # 0.6 10^3/uL (0.2-0.9); Neutrophils # 9.99 10^3/uL (1.8-7.7); Neutrophils % 90.2 %; Nucleated Red Blood Cells % 0 %; Platelet Count 198 10^3/cmm (157-399); Red Cell Distribution Width 12.4 % (12.1-15.1); White Blood Count 11.07 10^3/uL (3.29-11.43)
[2024-12-14] MEDS: iohexol 350 mg/mL 500 mL Btl (per mL) IV (20:17)
[2024-12-14 20:23] LABS: Alanine Aminotransferase 11 U/L (0-33); Albumin Level 4.1 g/dL (3.5-5.2); Alkaline Phosphatase 97 U/L (35-105); Anion Gap 16.3 (5-19); Aspartate Amino Transferase 17 U/L (0-32); Blood Urea Nitrogen 10 mg/dL (8-23); Calcium 8.8 mg/dL (8.5-10.5); Carbon Dioxide 23 mmol/L (22-29); Chloride 102 mmol/L (98-107); Creatinine Clr Calc Pharmacy 56.4672; Glomerular Filtration Rate 82.7 mL/min (90-130); Glucose 124 mg/dL (65-115); Lactic Sepsis W/Reflex 0.7 mmol/L (0.5-2.2); Lipase 19 U/L (13-60); Osmolality Calculated 286 mOsm/kg (285-295); Potassium 3.3 mmol/L (3.5-5.1); Sodium 138 mmol/L (136-145); Total Bilirubin 0.7 mg/dL (0.15-1.2); Total Protein 7.1 g/dL (6.6-8.7)
[2024-12-14] MEDS: sodium chloride 0.9% 1,000 ML 999 ML IV (20:28)
--- NOTE | 2024-12-14 20:36 | ED_ITS ---
HPI - Abdominal Pain 2 General: Chief Complaint: Abdominal Pain Stated Complaint: Fever,hernia,chills Time Seen by Provider: 12/14/24 19:45 History of Present Illness: 69-year-old female presenting with left- sided abdominal pain. She tells me she had an endoscopy last week and was diagnosed with a hiatal hernia. She has not had vomiting. She has had some mild diarrhea she says. No blood in the stool. No dysuria. No blood in the urine. She does have a fever. No cough. No sick contacts. Related Data Home Medications ?Medication ?Instructions ?Recorded ?Confirmed fluticasone propionate 50 1 spray intranasal BID PRN 0 10/16/24 11/21/24 mcg/actuation nasal spray,suspension Previous Rx's ?Medication ?Instructions ?Recorded epinephrine 0.3 mg/0.3 mL 0.3 mg (0.3 mL) IM Q4H PRN 0 03/18/22 injection, auto-injector (EpiPen anaphylaxis #2 ea 2-Ulysses) betamethasone dipropionate 0.05 % 1 applic topical BID PRN skin 09/15/23 topical cream irritation #45 grams atorvastatin 40 mg tablet See Rx Instructions .Route 0 05/16/24 .COMPLEX #90 tabs carvedilol 3.125 mg tablet See Rx Instructions .Route 05/21/24 .COMPLEX #180 tabs nifedipine 30 mg tablet,extended See Rx Instructions . Route 09/01/24 release 24 hr .COMPLEX #90 tabs escitalopram oxalate 10 mg tablet 10 mg PO DAILY #90 t abs 09/10/24 (Lexapro) losartan 50 mg tablet See Rx Instructions .Route 1 11/11/23 .COMPLEX #90 tabs montelukast 10 mg tablet 10 mg PO DAILY #30 tabs 12/30 omeprazole 20 mg capsule,delayed 20 mg PO ONCE #30 cap s 09/10/24 release furosemide 20 mg tablet (Lasix) 20 mg PO DAILY #60 tab s 10/17/24 potassium chloride 10 mEq 10 meq PO DAILY #60 caps 07/03 capsule,extended release fluticasone propionate 50 1 spray intranasal BID PRN n chuck 10/29/24 mcg/actuation nasal congestion #16 grams spray,suspension (Allergy Relief (fluticasone)) ciprofloxacin HCl 500 mg tablet 500 mg PO BID #14 tabs 12/14/24 hydrocodone 5 mg-acetaminophen 325 1 tab PO Q8H PRN pa in #7 tabs 12/14/24 mg tablet metronidazole 500 mg tablet 500 mg PO Q8H 7 days #21 t abs 12/14/24 ondansetron 4 mg disintegrating 4 mg PO Q6H PRN nausea and 12/14/24 tablet vomiting #14 tabs Allergies Allergy/AdvReac Type Severity Reaction Status Date / Time sulfamethoxazole (From Allergy ALGY-Anaphy Verified 11/21/24 11:17 Bactrim) laxis trimethoprim (From Bactrim) Allergy ALGY-Anaphy Verified 11/21/24 11:17 laxis PFSH ED 2 PFSH: Medical History Left flank pain Excessive cerumen in both ear canals Allergic rhinitis due to allergen Surgical History History of hysterectomy History of bladder repair surgery Dr. Hull History of hernia repair Ventral History of repair of right rotator cuff Family History Other CAD (coronary artery disease) Cancer Lung disease Denies family history of Diabetes Clotting disorder Dementia Hyperlipidemia Psychiatric illness Chronic kidney disease (CKD) Suicide Anesthesia complication Bleeding disorder Family history of premature coronary artery disease Hypertension Stroke Social History Smoking and tobacco/nicotine status: never used tobacco/nicotine Alcohol intake: current Alcohol intake frequency: holidays/special occasions only Substance/Drug Use: never Adopted: No service: No Current occupational exposures/hazards: No Physical Exam 2 Const: GENERAL APPEARANCE: cooperative and ill appearing (Mildly); not frail appearing HENMT: COMMON NORMALS: normocephalic, atraumatic and Normal external nose present HEAD & SCALP: normocephalic and atraumatic FACE & SINUS: normal facial exam and face symmetric NOSE: Normal external nose present Eye: COMMON NORMALS: Equal, round and reactive pupils present and EOMs intact bilaterally PUPIL: Yes Equal, round and reactive pupils present Neck/C-Spine: GENERAL: Yes trachea midline Chest: CHEST: Yes Symmetrical chest wall rise Resp: COMMON NORMALS: normal respiratory effort, No retractions, No use of accessory muscles and clear to auscultation bilaterally AUSCULTATION: clear to auscultation bilaterally Cardio: COMMON NORMALS: regular rate and regular rhythm RATE: regular rate RHYTHM: regular rhythm GI: COMMON NORMALS: Normal to inspection, nondistended, normoactive bowel sounds present : OTHER: Mild left CVA tenderness Extremity: COMMON NORMALS: no pedal edema Neuro: ANGELINE COMA SCALE: document GCS findings Angeline coma scale eye opening: Spontaneous Angeline coma scale verbal response: Orientated Angeline coma scale motor response: Obey commands Angeline coma scale total score: 15 S ENSORY EXAM: Yes extremities (intact) Psych: COMMON NORMALS: speech normal SPEECH: Yes normal speech Skin: COMMON NORMALS: no rashes or lesions noted GENERAL SKIN EXAM: no rashes or lesions noted Course 2 Vital Signs: Vital signs: Vital Signs Temperature 99.7 F H 12/14/24 21:51 Pulse Rate 94 12/14/24 22:16 Respiratory Rate 20 H 12/14/24 20:41 Blood Pressure 149/59 12/14/24 22:16 Pulse Oximetry 94 12/14/24 22:16 Oxygen Delivery Me thod Room Air 12/14/24 21:30 MDM - Abdominal Pain Medical Decision Making Vitals have been stable here. Temperatures improving after Toradol. White blood cell count is 11. CBC is otherwise not remarkable. Potassium is mildly low at 3.3. BMP is not otherwise remarkable. CRP is elevated at 20. Flu swab is negative. Urinalysis is not remarkable. Abdominal CT shows pancolitis, likely the cause of her pain, and some diarrhea today. She will be covered with antibiotics. She will be sent home with stool culture apparatus. Stool cultures been ordered as well as C. difficile PCR. She will be covered with antibiotics for colitis. To return for any worsening symptoms despite treatment. Patient and family understand. Lab Data 12/14/24 19:58 12/14/24 19:58 Labs/Radiology: Radiology Impressions Abdomen/Pelvis CT 12/14/24 20:01 IMPRESSION: Pancolitis Laboratory Results WBC 11.07 10^3/uL (3.29-11.43) 12/14/24 19:58 RBC 3.60 10^6/uL (3.85-5.65) L 12/14/24 19:58 Hgb 11.40 g/dL (11.27-16.99) 12/14/24 19:58 Hct 34.5 % (36-47) L 12/14/24 19:58 MCV 95.8 fl (85-98) 12/14/24 19:58 MCH 31.7 pg (27-33) 12/14/24 19:58 MCHC 33.0 g/dL (30-55) 12/14/24 19:58 RDW 12.4 % (12.1-15.1) 12/14/24 19:58 Plt Count 198 10^3/cmm (157-399) 12/14/24 19:58 MPV 10.2 fL (7.4-10.4) 12/14/24 19:58 Neut % (Auto) 90.2 % 12/14/24 19:58 Lymph % (Auto) 4.3 % 12/14/24 19:58 Treasure % (Auto) 5.0 % 12/14/24 19:58 Eos % (Auto) 0.0 % 12/14/24 19:58 Baso % (Auto) 0.2 % 12/14/24 19:58 Neut # (Auto) 9.99 10^3/uL (1.8-7.7) H 12/14/24 19:58 Lymph # (Auto) 0.5 10^3/uL (0.8-4.8) L 12/14/24 19:58 Treasure # (Auto) 0.6 10^3/uL (0.2-0.9) 12/14/24 19:58 Eos # (Auto) 0.0 10^3/uL (0.0-0.8) 12/14/24 19:58 Baso # (Auto) 0.0 10^3/uL (0.0-0.1) 12/14/24 19:58 Nucleated RBC % (auto) 0 % 12/14/24 19:58 Nucleated RBCs # 0.0 /100WBC 12/14/24 19:58 Sodium 138 mmol/L (136-145) 12/14/24 19:58 Potassium 3.3 mmol/L (3.5-5.1) L 12/14/24 19:58 Chloride 102 mmol/L (98-107) 12/14/24 19:58 Carbon Dioxide 23 mmol/L (22-29) 12/14/24 19:58 Anion Gap 16.3 (5-19) 12/14/24 19:58 BUN 10 mg/dL (8-23) 12/14/24 19:58 Creatinine 0.7 mg/dL (0.5-0.9) 12/14/24 19:58 GFR Calculation 82.7 mL/min (90-130) L 12/14/24 19:58 Glucose 124 mg/dL (65-115) H 12/14/24 19:58 Calculated Osmolality 286 mOsm/kg (285-295) 12/14/24 19:58 Lactic Acid 0.7 mmol/L (0.5-2.2) 12/14/24 19:58 Calcium 8.8 mg/dL (8.5-10.5) 12/14/24 19:58 Total Bilirubin 0.7 mg/dL (0.15-1.2) 12/14/24 19:58 AST 17 U/L (0-32) 12/14/24 19:58 ALT 11 U/L (0-33) 12/14/24 19:58 Alkaline Phosphatase 97 U/L (35-105) 12/14/24 19:58 C-Reactive Protein 20.0 mg/L (0.0-4.9) H 12/14/24 19:58 Total Protein 7.1 g/dL (6.6-8.7) 12/14/24 19:58 Albumin 4.1 g/dL (3.5-5.2) 12/14/24 19:58 Globulin 3.0 g/dL (1.3-4.6) 12/14/24 19:58 Lipase 19 U/L (13-60) 12/14/24 19:58 Urine Color Yellow (Yellow) 12/14/24 20:30 Urine Appearance Clear (CLEAR) 12/14/24 20:30 Urine pH 7.5 (5-7) 12/14/24 20:30 Ur Specific [place] 1.036 (1.005-1.030) H 12/14/24 20:30 Urine Protein Negative (Negative) 12/14/24 20:30 Urine Glucose (UA) Negative (Normal) 12/14/24 20:30 Urine Ketones Trace (Negative) 12/14/24 20:30 Urine Blood Negative (Negative) 12/14/24 20:30 Urine Nitrate Negative (Negative) 12/14/24 20:30 Urine Bilirubin Negative (Negative) 12/14/24 20:30 Urine Urobilinogen 0.2 mg/dL (Negative) 12/14/24 20:30 Ur Leukocyte Esterase Negative (Negative) 12/14/24 20:30 Urine RBC 3-5 /hpf (0-2) 12/14/24 20:30 Urine WBC 0-5 /hpf (0-5) 12/14/24 20:30 Ur Squamous Epith Cells 0-5 /hpf (0-5) 12/14/24 20:30 Amorphous Sediment Not Reportable 12/14/24 20:30 Urine Bacteria None seen /hpf (NONE) 12/14/24 20:30 Hyaline Casts 0-4 /lpf H 12/14/24 20:30 Influenza A (PCR) Negative (Negative) 12/14/24 20:45 Influenza Type B (PCR) Negative (Negative) 12/14/24 20:45 RSV (PCR) Negative (Negative) 12/14/24 20:45 SARS-CoV-2 (PCR) Negative (Negative) 12/14/24 20:45 All radiology interpretation(s) finalized by discharge Discharge Plan Discharge Patient Disposition: Home Clinical Impression: Colitis Condition: Stable Prescriptions: New metronidazole 500 mg tablet 500 mg PO Q8H 7 Days Qty: 21 0RF ciprofloxacin HCl 500 mg tablet 500 mg PO BID Qty: 14 0RF ondansetron 4 mg tablet,disintegrating 4 mg PO Q6H PRN (Reason: nausea and vomiting) Qty: 14 0RF hydrocodone-acetaminophen 5-325 mg tablet 1 tab PO Q8H PRN (Reason: pain) Qty: 7 0RF No Action betamethasone dipropionate 0.05 % cream 1 applic topical BID PRN (Reason: skin irritation) Qty: 45 2RF omeprazole 20 mg capsule,delayed release(DR/EC) 20 mg PO ONCE Qty: 30 2RF montelukast 10 mg tablet 10 mg PO DAILY Qty: 30 2RF escitalopram oxalate [Lexapro] 10 mg tablet 10 mg PO DAILY Qty: 90 0RF losartan 50 mg tablet See Rx Instructions .ROUTE .COMPLEX Qty: 90 1RF Dose Instruction: TAKE ONE TABLET BY MOUTH DAILY Rx Instructions: TAKE ONE TABLET BY MOUTH DAILY fluticasone propionate [Allergy Relief (fluticasone)] 50 mcg/actuation spray,suspension 1 spray intranasal BID PRN (Reason: nasal congestion) Qty: 16 0RF Rx Instructions: administer into each nostril epinephrine [EpiPen 2-Ulysses] 0.3 mg/0.3 mL auto-injector 0.3 mg IM Q4H PRN (Reason: anaphylaxis) Qty: 2 1RF carvedilol 3.125 mg tablet See Rx Instructions .ROUTE .COMPLEX Qty: 180 1RF Dose Instruction: TAKE ONE TABLET BY MOUTH TWICE DAILY * MUST ADMINISTER WITH A MEAL / FOOD * Rx Instructions: TAKE ONE TABLET BY MOUTH TWICE DAILY * MUST ADMINISTER WITH A MEAL / FOOD * fluticasone propionate 50 mcg/actuation spray,suspension 1 spray intranasal BID PRN Rx Instructions: Please dispense a 90 day supply atorvastatin 40 mg tablet See Rx Instructions .ROUTE .COMPLEX Qty: 90 1RF Dose Instruction: TAKE ONE TABLET BY MOUTH DAILY Rx Instructions: TAKE ONE TABLET BY MOUTH DAILY nifedipine 30 mg tablet extended release 24hr See Rx Instructions .ROUTE .COMPLEX Qty: 90 1RF Dose Instruction: TAKE ONE TABLET BY MOUTH DAILY Rx Instructions: TAKE ONE TABLET BY MOUTH DAILY furosemide [Lasix] 20 mg tablet 20 mg PO DAILY Qty: 60 3RF potassium chloride 10 mEq capsule, extended release 10 meq PO DAILY Qty: 60 3RF Discharge Orders: Discharge ED (Routine); Ordered 12/14/24 Ordered By: Jamin Vieira Referrals: Oliva Sr, LOBSTERMAN [Primary Care Provider] - 1-3 days Patient Instructions: Colitis (ED), Opioid Safety, Pain Management Activity Restrictions/Additional Instructions: Antibiotics as directed. Stay hydrated. Watch for fever often, and control with Tylenol or anti-inflammatories. Return for worsening pain despite treatment, significant blood in the stool, vomiting liquids or medications, any other concerning symptoms. Follow-up with your doctor next week. Call Monday for an appointment. Print Language: [place] Coding Level of Care Code ED Customer Service Dispatcher for Carmen Cedeno
[2024-12-14] MEDS: ondansetron 2 mg/ML SDV 2 mL 4 MG IVP (20:37)
[2024-12-14] MEDS: ketorolac 30 mg/mL INJ 15 MG IVP (20:40)
[2024-12-14] MEDS: morphine 4 mg/mL SDV 1 mL IVP (20:41)
[2024-12-14 21:01] LABS: Bacteria Urine None Seen /hpf; Hyaline Casts Urine 0-4 /lpf; Squamous Epithelial Cell Urine 0-5 /hpf (0-5); WBC Urine 0-5 /hpf (0-5)
[2024-12-14 21:11] LABS: Add Urine Microscopic? YES; Bilirubin Urine Negative (Negative); Blood Urine Negative (Negative); Glucose Urine UA Negative (Normal); Ketones Urine Trace (Negative); Leukocyte Esterase Urine Negative (Negative); Nitrate Urine Negative (Negative); Protein Urine Negative (Negative); Specific Gravity, Urine 1.036 (1.005-1.030); Urine Appearance Clear (CLEAR); Urine Color Yellow (Yellow); Urobilinogen Urine 0.2 mg/dL (Negative); pH Urine 7.5 (5-7)
[2024-12-14 21:32] LABS: Influenza A NEGATIVE (Negative); Influenza B NEGATIVE (Negative); Respiratory Syncytial Virus Ce NEGATIVE (Negative); SARS-CoV-2 PCR NEGATIVE (Negative)
[2024-12-14] MEDS: acetaminophen 325 mg Tablet 650 MG PO (22:00)
[2024-12-14] MEDS: metroNIDAZOLE 500 MG Tablet PO (22:01)
[2024-12-14] MEDS: ciprofloxacin 500 mg Tablet PO (22:01)
[2024-12-14] MEDS: metroNIDAZOLE 500 MG Tablet 1000 MG PO (22:15)
[2024-12-14] MEDS: ciprofloxacin 500 mg Tablet 1000 MG PO (22:16)
--- NOTE | 2024-12-14 22:17 | PC.NURSE ---
pt has ordered stool samples collection for lab. This nurse gave pt toilet hat specimen, sterile specimen cup, and spoon and pt educated to collect stool and bring back to ER to be turned into lab.
== END 2024-12-14 22:17 | disposition home or self-care (01) ==
PROVIDERS: Emergency Provider Emergency Medicine
DX: K52.9 Noninfective gastroenteritis and colitis, unspecified (principal); Z11.52 Encounter for screening for COVID-19
CPT/HCPCS: 36415; 74177; 80053; 81001; 83605; 83690; 85025; 86140; 87637; 96361; 96374; 96375; 99285; J1885; J2270; J2405; J7030

== ENCOUNTER 2024-12-15 13:22 | Outpatient (CLI) | payer MEDICARE, MEDICAID, SELFPAY ==
[2024-12-15 14:29] LABS: C.Diff PCR (Lab) NEGATIVE (Negative)
== END 2024-12-15 13:23 | disposition home or self-care (01) ==
PROVIDERS: Visit Provider Emergency Medicine
DX: Z01.89 Encounter for other specified special examinations (principal)
CPT/HCPCS: 82274; 83630; 87045; 87427; 87449; 87493

== ENCOUNTER → 2024-12-30 08:48 | Outpatient (BNVA) | payer MEDICARE, MEDICAID, SELFPAY | PROVIDERS: PCP Family Medicine; Referring Provider Family Medicine; Visit Provider Student in an Organized Health Care Education/Training Program | DX: K52.9 Noninfective gastroenteritis and colitis, unspecified (principal) | CPT/HCPCS: 99204 ==

== ENCOUNTER 2025-02-04 06:24 | Day surgery (SDC) | payer MEDICARE, MEDICAID, SELFPAY ==
[2025-02-04 06:44] VITALS: BP 176/92; PULSE 74; RESP 16; TEMP 37; O2SAT 98; BMI 22.6
[2025-02-04] MEDS: sodium chloride 0.9% 1,000 ML 30 ML IV (06:45)
[2025-02-04 06:50] VITALS: BP 135/77
--- NOTE | 2025-02-04 07:00 | ANES.PREANE2 ---
Pre-Anesthetic Assessment Height/Weight: Height 1.6 m Weight 58.06 kg Temp Pulse Resp BP Pulse Ox O2 Del Method 98.6 F 74 16 135/77 98 Room Air 02/04/25 06:44 02/04/25 06:44 02/04/25 06:44 02/04/25 06:50 02/04/25 06:44 02/04/25 06:44 Preop Diagnosis: screening Operation Date: 02/04/25 07:30 Proposed Procedures p Colonoscopy 14147 G0121 K52.9(Not Applicable) - Ayush Dunn MD Familial anesthetic complications: none Was Beta [place] taken within 24 hours: Yes Was Clonidine taken within 24 hours: N/A Last intake: Intake Last Liquid Date 02/03/25 Last Liquid Time 20:00 Last Solid Date 02/02/25 Last Solid Time 20:00 Social Alcohol and No tobacco Exam alert, oriented x 3, clear to auscultation bilaterally and regular rate & rhythm Airway Submandibular: within normal limits Cervical ROM: within normal limits Mallampati: Class II Dentition: full History/ROS No significant history except as noted and No significant complaints Pulmonary Exertional Dyspnea CV/HEM Coronary Artery Disease None reported Hepatic None reported GI Hiatal Hernia Metabolic None reported Musc/skel None reported Neuropsych Anxiety Anesthetic Plan ASA status: 3 Anesthesia: MAC Risk of > 500 ml blood loss (7ml/kg in children): No Medications/Allergies Home Medications ?Medication ?Instructions ?Recorded ?Confirmed ?Last Taken ?Type epinephrine 0.3 mg/0.3 mL 0.3 mg (0.3 mL) IM Q4H PRN 03/18/22 02/04/25 Unknown Rx injection, auto-injector (EpiPen anaphylaxis #2 ea 2-Ulysses) furosemide 20 mg tablet (Lasix) 20 mg PO DAILY #60 tabs 10/17/24 02/04/25 01/29/25 Rx potassium chloride 10 mEq 10 meq PO DAILY #60 caps 10/17/24 02/04/25 01/29/25 Rx capsule,extended release hydrocodone 5 mg-acetaminophen 325 1 tab PO Q8H PRN pain #7 tabs 12/14/24 02/04/25 Unknown Rx mg tablet ondansetron 4 mg disintegrating 4 mg PO Q6H PRN nausea and 12/14/24 02/04/25 02/03/25 Rx tablet vomiting #14 tabs sertraline 50 mg tablet 50 mg PO DAILY #30 tabs 01/16/25 02/04/25 02/03/25 Rx atorvastatin 40 mg tablet 40 mg PO DAILY 01/29/25 02/04/25 02/03/25 History carvedilol 3.125 mg tablet 3.125 mg PO BID 01/29/25 02/04/25 02/04/25 History losartan 50 mg tablet 50 mg PO DAILY 01/29/25 02/04/25 02/03/25 History montelukast 10 mg tablet 10 mg PO DAILY 01/29/25 02/04/25 01/29/25 History (Singulair) nifedipine 30 mg tablet,extended 30 mg PO DAILY 01/29/25 02/04/25 02/03/25 History release 24 hr omeprazole 20 mg capsule,delayed 20 mg PO DAILY 01/29/25 02/04/25 01/29/25 History release Allergies Allergy/AdvReac Type Severity Reaction Status Date / Time sulfamethoxazole (From Allergy ALGY-Anaphy Verified 02/04/25 06:39 Bactrim) laxis trimethoprim (From Bactrim) Allergy ALGY-Anaphy Verified 02/04/25 06:39 laxis [facility] Anesthesia Medical History Left flank pain Excessive cerumen in both ear canals Allergic rhinitis due to allergen Surgical History History of hysterectomy History of bladder repair surgery Dr. Hull History of hernia repair Ventral History of repair of right rotator cuff Family History Other CAD (coronary artery disease) Cancer Lung disease Denies family history of Diabetes Clotting disorder Dementia Hyperlipidemia Psychiatric illness Chronic kidney disease (CKD) Suicide Anesthesia complication Bleeding disorder Family history of premature coronary artery disease Hypertension Stroke Social History Smoking and tobacco/nicotine status: never used tobacco/nicotine Alcohol intake: current Alcohol intake frequency: holidays/special occasions only Substance/Drug Use: never Adopted: No service: No Current occupational exposures/hazards: No Data Anesthesia Cardiac Studies: Echocardiogram 07/18/24 Sestamibi Stress Test (Cardiology) 04/07/22
--- NOTE | 2025-02-04 07:07 | W.PM.OPSFHP ---
Same Day Surgery H&P Indication for Procedure/HPI DATE OF PROCEDURE: February 04, 2025 CHIEF COMPLAINT/INDICATIONFOR SURGICAL PROCEDURE: colitis PREOP DIAGNOSIS: colitis PLANNED PROCEDURE: Operation Date: 02/04/25 07:30 Proposed Procedures p Colonoscopy 23566 G0121 K52.9(Not Applicable) - Ayush Dunn MD Medications/Allergies* Home Medications ?Medication ?Instructions ?Recorded ?Confirmed ?Type atorvastatin 40 mg tablet 40 mg PO DAILY 01/29/25 02/04/25 History carvedilol 3.125 mg tablet 3.125 mg PO BID 01/29/25 02/04/25 History losartan 50 mg tablet 50 mg PO DAILY 01/29/25 02/04/25 History montelukast 10 mg tablet 10 mg PO DAILY 01/29/25 02/04/25 History (Singulair) nifedipine 30 mg tablet,extended 30 mg PO DAILY 01/29/25 02/04/25 History release 24 hr omeprazole 20 mg capsule,delayed 20 mg PO DAILY 01/29/25 02/04/25 History release Allergies/Adverse Reactions Allergy/AdvReac Type Severity Reaction Status Date / Time sulfamethoxazole (From Allergy ALGY-Anaphy Verified 02/04/25 06:39 Bactrim) laxis trimethoprim (From Bactrim) Allergy ALGY-Anaphy Verified 02/04/25 06:39 laxis Pertinent History/Comorbid Conditions* Medical History (Updated 12/23/24 @ 10:57 by Jillian Carlos DO) Left flank pain Excessive cerumen in both ear canals Allergic rhinitis due to allergen Surgical History (Updated 02/04/22 @ 09:23 by Jillian Carlos DO) History of hysterectomy History of bladder repair surgery Dr. Hull History of hernia repair Ventral History of repair of right rotator cuff Family History (Updated 02/04/22 @ 09:16 by Rowan Scott LPN) CAD (coronary artery disease) Lung disease Cancer Denies family history of Diabetes Clotting disorder Dementia Hyperlipidemia Psychiatric illness Chronic kidney disease (CKD) Suicide Anesthesia complication Bleeding disorder Family history of premature coronary artery disease Hypertension Stroke Social History Smoking and tobacco/nicotine status: never used tobacco/nicotine Alcohol intake: current Alcohol intake frequency: holidays/special occasions only Substance/Drug Use: never Adopted: No service: No Current occupational exposures/hazards: No Pertinent Exam Findings alert, oriented x 3, clear to auscultation bilaterally, regular rate & rhythm and procedure specific exam findings abdomen soft, nt, nd Recommendations Risks and benefits of procedure reviewed Surgery/Procedure today Coding Level of Care Code Acute Code for Chg Fwd
[2025-02-04 07:54] VITALS: BP 168/95; PULSE 92; RESP 18; TEMP 36.3; O2SAT 92
[2025-02-04] MEDS: acetaminophen 325 mg Tablet 650 MG PO (08:18)
[2025-02-04 08:20] VITALS: BP 161/88; PULSE 59; RESP 16; O2SAT 96
--- NOTE | 2025-02-04 12:14 | ANE.PACU2 ---
Inpatient post-anesthesia follow up: Airway intact: Yes Vital signs: Temperature 97.3 F Pulse Rate 59 Respiratory Rate 16 Blood Pressure 161/88 Pulse Oximetry 96 Oxygen Delivery Me thod Room Air Oxygen Flow Rate Fraction of Inspir ed Oxygen Hydration adequate: Yes Nausea and vomiting: No Pain level: 1 Mental status: Baseline
== END 2025-02-04 08:35 | disposition home or self-care (01) ==
PROVIDERS: Family Provider Nurse Practitioner Family; PCP Family Medicine; Visit Provider Student in an Organized Health Care Education/Training Program
PROC: 0DJD8ZZ Inspection of Lower Intestinal Tract, Via Natural or Artificial Opening Endoscopic (ICD-10-PCS; CPT 45378; principal; 2025-02-04 07:30)
DX: K52.9 Noninfective gastroenteritis and colitis, unspecified (principal); I25.10 Atherosclerotic heart disease of native coronary artery without angina pectoris; Z79.899 Other long term (current) drug therapy; Z88.2 Allergy status to sulfonamides
CPT/HCPCS: 45380; 88305; J2704; J3490; J7030; J9999

== ENCOUNTER 2025-02-12 11:17 | Emergency (ER) | payer MEDICARE, MEDICAID, SELFPAY ==
[2025-02-12 11:20] VITALS: BP 178/89; PULSE 67; RESP 18; TEMP 36.4; O2SAT 99; BMI 22.1
[2025-02-12 11:33] VITALS: BP 179/87; PULSE 66; O2SAT 97
--- NOTE | 2025-02-12 11:42 | CT_ITS ---
WS: [id number] CT CERVICAL TRAUMA TECHNIQUE: Noncontrast CT of the cervical spine with coronal and sagittal reformatted images. CLINICAL INFORMATION: trauma DLP: 1266.[address] scans at [facility] use at least one of these dose optimization techniques: automated exposure control; mA and/or kV adjustment per patient size (includes targeted exams where dose is matched to clinical indication); or iterative reconstruction. FINDINGS: Straightening of the normal cervical lordosis. Slight retrolisthesis C5 on C6. Slight anterolisthesis C6 on C7. Disc narrowing worse at C5-C6 Normal craniocervical junction. Normal C1-C2 articulation. Dens is normal in appearance. Normal occipital condyles. No high-grade spinal canal narrowing. Normal C1 ring. No evidence of acute fracture or dislocation. Normal prevertebral soft tissues. Fibrosis in the lung apices. Mastoids air cells are well aerated. CT/CT cervical spin wo con* [id number] IMPRESSION: No evidence of acute fracture or dislocation.
--- NOTE | 2025-02-12 11:42 | CT_ITS ---
WS: [id number] CT HEAD TECHNIQUE: Noncontrast CT of the head obtained from the skullbase to the vertex. CLINICAL INFORMATION: Trauma COMPARISON: None. DLP: 1266.[address] scans at [facility] use at least one of these dose optimization techniques: automated exposure control; mA and/or kV adjustment per patient size (includes targeted exams where dose is matched to clinical indication); or iterative reconstruction. FINDINGS: No evidence of intracranial hemorrhage or mass effect. Ventricular system and basal cisterns are patent. Mild small vessel changes with mild parenchymal volume loss. No extra-axial fluid collections. No evidence of mass or mass effect. Chronic appearing infarcts in the LEFT basal ganglia. Mild mucosal thickening in the ethmoid air cells. Small retention cyst frontal sinus. Mastoid air cells are well aerated. CT/CT head wo con* [id number] IMPRESSION: 1. No evidence of intracranial hemorrhage or mass effect. 2. Small infarcts in the LEFT basal ganglia have a chronic appearance. This ca n be followed up with MRI. 3. Mild small vessel changes. Mild parenchymal volume loss. 4. No acute intracranial findings.
--- NOTE | 2025-02-12 11:44 | W.ED.FALL ---
HPI - Fall General: Chief Complaint: Fall Stated Complaint: chin lac, fall, neck pain Time Seen by Provider: 02/12/25 11:38 History of Present Illness: 69-year-old female presents emergency room after a fall. Ground-level mechanical fall she is walking the track means she get her feet tangled up with some children she was walking when she landed face down she was able to extend her neck she has since moderate amount of neck discomfort she has a small laceration on her chin. She also has some right shoulder pain. She had no loss consciousness no vision changes she has a front tooth left to the midline mandible that she feels like it is loose but did not get displaced. She has not had any nausea or vomiting since the fall. She denies any other injuries she was ambulatory after the fall arrived here via private vehicle c-collar placed after arrival by the nurse Associated symptoms-after fall: Denies abdominal pain, chest pain or neck pain Related Data Home Medications ?Medication ?Instructions ?Recorded ?Confirmed atorvastatin 40 mg tablet 40 mg PO DAILY 01/29/25 02/13/25 carvedilol 3.125 mg tablet 3.125 mg PO BID 01/29/25 02/13/25 losartan 50 mg tablet 50 mg PO DAILY 01/29/25 02/13/25 montelukast 10 mg tablet 10 mg PO DAILY 01/29/25 02/13/25 (Singulair) nifedipine 30 mg tablet,extended 30 mg PO DAILY 01/29/25 02/13/25 release 24 hr omeprazole 20 mg capsule,delayed 20 mg PO DAILY 01/29/25 02/13/25 release famotidine 20 mg tablet 20 mg PO DAILY 02/12/25 02/13/25 Previous Rx's ?Medication ?Instructions ?Recorded epinephrine 0.3 mg/0.3 mL 0.3 mg (0.3 mL) IM Q4H PRN 03/18/22 injection, auto-injector (EpiPen anaphylaxis #2 ea 2-Ulysses) furosemide 20 mg tablet (Lasix) 20 mg PO DAILY #60 tabs 10/17/24 potassium chloride 10 mEq 10 meq PO DAILY #60 caps 10/17/24 capsule,extended release ondansetron 4 mg disintegrating 4 mg PO Q6H PRN nausea and 12/14/24 tablet vomiting #14 tabs sertraline 50 mg tablet 50 mg PO DAILY #30 tabs 01/16/25 diclofenac sodium 75 mg 75 mg PO Q12H PRN pain #20 tabs 02/12/25 tablet,delayed release tizanidine 4 mg tablet 4 mg PO Q6H PRN muscle spasticity 02/12/25 #20 tabs Allergies Allergy/AdvReac Type Severity Reaction Status Date / Time sulfamethoxazole (From Allergy ALGY-Anaphy Verified 02/13/25 15:15 Bactrim) laxis trimethoprim (From Bactrim) Allergy ALGY-Anaphy Verified 02/13/25 15:15 laxis Review of Systems Const: Denies: fever(s) or chills Card: Denies: chest pain Resp: Denies: dyspnea GI: Denies: abdominal pain : Denies: dysuria, urinary frequency or urinary urgency Musc: Denies: neck pain or back pain Skin/Breast: Denies: rash PFSH ED PFSH: Medical History Acute sore throat Left flank pain Excessive cerumen in both ear canals Allergic rhinitis due to allergen Surgical History S/P colonoscopy History of hysterectomy History of bladder repair surgery Dr. Hull History of hernia repair Ventral History of repair of right rotator cuff Family History Other CAD (coronary artery disease) Cancer Lung disease Denies family history of Diabetes Clotting disorder Dementia Hyperlipidemia Psychiatric illness Chronic kidney disease (CKD) Suicide Anesthesia complication Bleeding disorder Family history of premature coronary artery disease Hypertension Stroke Social History Smoking and tobacco/nicotine status: never used tobacco/nicotine Alcohol intake: current Alcohol intake frequency: holidays/special occasions only Substance/Drug Use: never Adopted: No service: No Current occupational exposures/hazards: No Physical Exam Const: GENERAL APPEARANCE: cooperative and comfortable ORIENTATION/CONSCIOUSNESS: Yes awake, Yes oriented to person, Yes oriented to place and Yes oriented to time HENMT: COMMON NORMALS: normocephalic, atraumatic and hearing grossly normal bilaterally HEAD & SCALP: normocephalic and atraumatic Resp: COMMON NORMALS: normal respiratory effort, No retractions, No use of accessory muscles and clear to auscultation bilaterally AUSCULTATION: clear to auscultation bilaterally Cardio: COMMON NORMALS: regular rate, regular rhythm and No murmurs present (Cardio) RATE: regular rate RHYTHM: regular rhythm GI: COMMON NORMALS: Soft to palpation and No hepatosplenomegaly present AUSCULTATION: Yes normoactive bowel sounds PALPATION: Yes Soft to palpation, No Tenderness to palpation present (GI), No Guarding due to palpation present (GI) and Yes No hepatosplenomegaly present Extremity: COMMON NORMALS: normal to inspection, capillary refill normal, no clubbing, cyanosis or edema, no calf tenderness and no pedal edema Neuro: SENSORIUM/ORIENTATION: Yes oriented to person, Yes oriented to place and Yes oriented to time Skin: COMMON NORMALS: no rashes or lesions noted GENERAL SKIN EXAM: no rashes or lesions noted Course Vital Signs: Vital signs: Vital Signs Temperature 97.6 F 02/12/25 11:20 Pulse Rate 69 02/12/25 13:54 Respiratory Rate 18 02/12/25 11:20 Blood Pressure 168/93 02/12/25 13:54 Pulse Oximetry 99 02/12/25 13:54 Oxygen Delivery Me thod Room Air 02/12/25 12:35 MDM - Fall Medical Decision Making Labs and imaging reviewed. No acute findings in the the plain x-rays or CT there is sign of old stroke on the CT but nothing acute. Neck did not show any abnormalities. Patient has small laceration under the chin which after discussion we elected to Steri-Strip. Wound care instructions given apply topical antibiotic ointment follow-up with primary care if shoulder pain continues. Lab Data Radiology Impressions Cervical Spine CT 02/12/25 11:42 IMPRESSION: No evidence of acute fracture or dislocation. Head CT 02/12/25 11:42 IMPRESSION: 1. No evidence of intracranial hemorrhage or mass effect. 2. Small infarcts in the LEFT basal ganglia have a chronic appearance. This can be followed up with MRI. 3. Mild small vessel changes. Mild parenchymal volume loss. 4. No acute intracranial findings. Humerus X-Ray 02/12/25 11:53 IMPRESSION: No acute fracture. Shoulder X-Ray 02/12/25 11:53 IMPRESSION: No acute bone or joint abnormality identified. All radiology interpretation(s) finalized by discharge Discharge Plan Discharge Patient Disposition: Home Clinical Impression: Fall, Cervicalgia, Acute pain of right shoulder, Chin laceration Condition: Stable Prescriptions: New tizanidine 4 mg tablet 4 mg PO Q6H PRN (Reason: muscle spasticity) Qty: 20 0RF Rx Instructions: do not exceed 3 doses per 24 hrs diclofenac sodium 75 mg tablet,delayed release (DR/EC) 75 mg PO Q12H PRN (Reason: pain) Qty: 20 0RF No Action epinephrine [EpiPen 2-Ulysses] 0.3 mg/0.3 mL auto-injector 0.3 mg IM Q4H PRN (Reason: anaphylaxis) Qty: 2 1RF sertraline 50 mg tablet 50 mg PO DAILY Qty: 30 0RF furosemide [Lasix] 20 mg tablet 20 mg PO DAILY Qty: 60 3RF potassium chloride 10 mEq capsule, extended release 10 meq PO DAILY Qty: 60 3RF famotidine 20 mg tablet 20 mg PO DAILY ondansetron 4 mg tablet,disintegrating 4 mg PO Q6H PRN (Reason: nausea and vomiting) Qty: 14 0RF losartan 50 mg tablet 50 mg PO DAILY Rx Instructions: TAKE ONE TABLET BY MOUTH DAILY nifedipine 30 mg tablet extended release 24hr 30 mg PO DAILY Rx Instructions: TAKE ONE TABLET BY MOUTH DAILY atorvastatin 40 mg tablet 40 mg PO DAILY Rx Instructions: TAKE ONE TABLET BY MOUTH DAILY carvedilol 3.125 mg tablet 3.125 mg PO BID Rx Instructions: TAKE ONE TABLET BY MOUTH TWICE DAILY * MUST ADMINISTER WITH A MEAL / FOOD * omeprazole 20 mg capsule,delayed release(DR/EC) 20 mg PO DAILY montelukast [Singulair] 10 mg tablet 10 mg PO DAILY Discharge Orders: Discharge ED (Routine); Ordered 02/12/25 Ordered By: Rolan Gloria Referrals: Jillian Carlos DO [Primary Care Provider, Family Practice] Discharge Diet: Usual diet Discharge Activity: Increase activity as tolerated Patient Instructions: Opioid Safety, Pain Management Activity Restrictions/Additional Instructions: Thank you for choosing [facility] for your healthcare needs today. It is very important that you follow up as instructed or that you return to the Emergency Department should you have concerns or if your condition changes or worsens in any way. You were seen in the emergency room with complaints of neck pain and small laceration to your chin after a fall. CT of your head and neck as well as x-rays of your right shoulder and right upper arm did not show any acute fractures. It is not unusual to be very sore after a fall like this for several days. You are given prescriptions for a muscle relaxer and anti-inflammatory to use as needed. Try to maintain a minimal amount of mobility over the next few days to prevent increased tightening of the muscles. Apply [id number] topical antibiotic ointment to the wound on the chin which was Steri-Stripped allow the Steri-Strips to fall off on its own. Your tetanus was updated while you are in the emergency room today. Print Language: Indian Coding Level of Care Code ED Literacy Coach for Carmen Cedeno
--- NOTE | 2025-02-12 11:53 | XR_ITS ---
WS: [id number] XR shoulder RT min 2V* [id number] REASON FOR EXAM: trauma FINDINGS: No fracture identified. The acromioclavicular joint is intact with minimal osteoarthropathy. The glenohumeral joint space is not demonstrated on the images. Humeral head overlies the glenoid. XR/XR shoulder RT min 2V* [id number] IMPRESSION: No acute bone or joint abnormality identified.
--- NOTE | 2025-02-12 11:53 | XR_ITS ---
WS: [id number] [id number] REASON FOR EXAM: trauma FINDINGS: The humerus is intact with no fracture identified from the shoulder joint to the elbow. XR/[place] [id number] IMPRESSION: No acute fracture.
[2025-02-12] MEDS: tetanus-dipt-pertussis 0.5 mL SDV IM (11:57)
[2025-02-12 12:35] VITALS: BP 170/86; PULSE 69; O2SAT 98
[2025-02-12 13:54] VITALS: BP 168/93; PULSE 69; O2SAT 99
== END 2025-02-12 13:59 | disposition home or self-care (01) ==
PROVIDERS: Emergency Provider Family Medicine; PCP Family Medicine
DX: S01.81XA Laceration without foreign body of other part of head, initial encounter (principal); M54.2 Cervicalgia; M25.511 Pain in right shoulder; W19.XXXA Unspecified fall, initial encounter
CPT/HCPCS: 70450; 72125; 73030; 73060; 90471; 90715; 99284

== ENCOUNTER → 2025-02-24 13:19 | Outpatient (BNVA) | payer MEDICARE, MEDICAID, SELFPAY | PROVIDERS: Family Provider Nurse Practitioner Family; PCP Family Medicine; Visit Provider Student in an Organized Health Care Education/Training Program | DX: Z09 Encounter for follow-up examination after completed treatment for conditions other than malignant neoplasm (principal) | CPT/HCPCS: 99213 ==

== ENCOUNTER → 2025-04-03 15:16 | Outpatient (BNVA) | payer MEDICARE, MEDICAID, SELFPAY | PROVIDERS: PCP Family Medicine; Visit Provider Nurse Practitioner Family | DX: I42.8 Other cardiomyopathies (principal); I10 Essential (primary) hypertension; R94.31 Abnormal electrocardiogram [ECG] [EKG] | CPT/HCPCS: 99214 ==

== ENCOUNTER → 2025-08-05 17:01 | Outpatient (BNVA) | payer MEDICARE, MEDICAID, SELFPAY | PROVIDERS: PCP Family Medicine; Visit Provider Emergency Medicine | DX: M79.671 Pain in right foot (principal); M20.5X1 Other deformities of toe(s) (acquired), right foot | CPT/HCPCS: 73630 ==

== ENCOUNTER 2025-08-08 08:52 | Outpatient (CLI) | payer MEDICARE, MEDICAID, SELFPAY ==
--- NOTE | 2025-08-08 09:15 | USCV_ITS ---
Divya Ta Age: 70 Gender: F : 1955 Exam Date: 08/08/2025 09:21 Ordering Phys: Eliana Giron Technologist: Catracho Tillman [place] [facility] [place]: reduced lvef BP: 144 / 80 HR: 64 Rhythm: Sinus Technical Quality: Adequate MEASUREMENTS (Male / Female) Normal Values 2D ECHO LV Diastolic Diameter PLAX 5.3 cm 4.2 - 5.9 / 3.9 - 5.3 cm IVS Diastolic Thickness 1.0 cm 0.6 - 1.0 / 0.6 - 0.9 cm IVS Systolic Thickness 0.8 cm LVPW Diastolic Thickness 0.9 cm 0.6 - 1.0 / 0.6 - 0.9 cm LVPW Systolic Thickness 0.9 cm LVOT Diameter 2.0 cm LV Ejection Fraction 2D Teich 8.8 % LV Ejection Fraction MOD 4C 54.3 % LV Ejection Fraction MOD 2C 54.6 % LV Ejection Fraction 2C AL 57.7 % LA Diameter 3.3 cm RA Systolic Volume 4C AL 36.1 ml RA Systolic Volume 4C MOD 34.0 ml Aorta at Sinotubular Diameter 2.6 cm IVC Diameter 1.7 cm M-MODE LA Ao Ratio MM 1.5 AV Cusp Separation MM 1.4 cm DOPPLER AV Peak Velocity 119.0 cm/s LVOT Peak Velocity 87.0 cm/s AV Area Cont Eq vti 2.5 cm squared AV Area Cont Eq pk 2.3 cm squared MV Peak Velocity 79.0 cm/s MV Area PHT 4.4 cm squared Mitral E to A Ratio 1.1 TV Peak Velocity 205.5 cm/s TR Peak Velocity 275.0 cm/s TR Peak Gradient 30.3 mmHg TV Peak E Velocity 89.0 cm/s PV Peak Velocity 98.0 cm/s FINDINGS Left Ventricle Normal left ventricular size, systolic function and wall thickness, with no regional wall motion abnormalities. Left ventricular ejection fraction is 54%. Normal diastolic function. Right Ventricle Normal right ventricular size and systolic function. Normal right ventricular systolic pressure. Right Atrium Mildly increased right atrial size. Left Atrium Mildly increased left atrial size. IA Septum Normal interatrial septum. Mitral Valve Mild-moderate mitral valve regurgitation. Aortic Valve Structurally normal trileaflet aortic valve. No aortic valve stenosis. Trace aortic valve regurgitation. Tricuspid Valve Trace tricuspid valve regurgitation. Pulmonic Valve Trace pulmonary valve regurgitation. Pericardium No pericardial effusion. Aorta Normal size aortic root and proximal ascending aorta. IVC Normal inferior vena cava. CONCLUSIONS Normal left ventricular size, systolic function and wall thickness, with no regional wall motion abnormalities. Left ventricular ejection fraction is 54%. Normal diastolic function. Normal right ventricular size and systolic function. Normal right ventricular systolic pressure. Mild biatrial enlargement Mild-moderate mitral valve regurgitation. Gera Solomon MD, FACC (Electronically Signed) Final Date: 11 August 2025 18:06 S
== END 2025-08-08 08:53 | disposition home or self-care (01) ==
LOC: RAD 08:53
PROVIDERS: PCP Family Medicine; Visit Provider Nurse Practitioner Family
DX: I42.8 Other cardiomyopathies (principal); R94.31 Abnormal electrocardiogram [ECG] [EKG]; I34.0 Nonrheumatic mitral (valve) insufficiency
CPT/HCPCS: 93306

== ENCOUNTER → 2025-08-13 10:42 | Outpatient (BNVA) | payer MEDICARE, MEDICAID, SELFPAY | PROVIDERS: PCP Family Medicine; Visit Provider Podiatrist Foot & Ankle Surgery | DX: M79.671 Pain in right foot (principal); S92.354A Nondisplaced fracture of fifth metatarsal bone, right foot, initial encounter for closed fracture; X58.XXXA Exposure to other specified factors, initial encounter | CPT/HCPCS: 73630; 99204 ==

== ENCOUNTER → 2025-08-21 09:56 | Outpatient (BNVA) | payer MEDICARE, MEDICAID, SELFPAY | PROVIDERS: PCP Family Medicine; Visit Provider Family Medicine | DX: I10 Essential (primary) hypertension (principal) | CPT/HCPCS: 80053; 80061 ==

== ENCOUNTER → 2025-08-27 09:34 | Outpatient (BNVA) | payer MEDICARE, MEDICAID, SELFPAY | PROVIDERS: PCP Family Medicine; Visit Provider Podiatrist Foot & Ankle Surgery | DX: S92.354A Nondisplaced fracture of fifth metatarsal bone, right foot, initial encounter for closed fracture (principal); X58.XXXA Exposure to other specified factors, initial encounter | CPT/HCPCS: 73630; 99213 ==

== ENCOUNTER 2025-08-28 14:25 | Outpatient (CLI) | payer MEDICARE, MEDICAID, SELFPAY ==
--- NOTE | 2025-08-28 14:30 | XR_ITS ---
WS: [id number] DEXA (DUAL ENERGY X-RAY ABSORPTIOMETRY) Bone mineral density was performed using a [employer] machine. HISTORY: postmenopausal COMPARISON: None available. Lumbar spine BMD (L1-L4): 1.063 g/cm2 T score: -1.0 Z score: 0.9 Total hip BMD: Left: 0.665 g/cm2. T score: -2.7 Z score: -1.1 Right: 0.704 g/cm2. T score: -2.4 Z score: -0.7 10 year probability of a major osteoporotic fracture is 28.5%. XR/XR DEXA axial skeleton* [id number] IMPRESSION: OSTEOPOROSIS based upon the WHO classification for females.
== END 2025-08-28 14:26 | disposition home or self-care (01) ==
LOC: RAD 14:26
PROVIDERS: PCP Family Medicine; Visit Provider Family Medicine
DX: Z13.820 Encounter for screening for osteoporosis (principal); Z78.0 Asymptomatic menopausal state; M81.0 Age-related osteoporosis without current pathological fracture
CPT/HCPCS: 77080

== ENCOUNTER → 2025-09-08 09:03 | Outpatient (BNVA) | payer MEDICARE, MEDICAID, SELFPAY | PROVIDERS: PCP Family Medicine; Visit Provider Specialist | DX: G56.03 Carpal tunnel syndrome, bilateral upper limbs (principal) | CPT/HCPCS: 73110; 99205; 99214 ==

== ENCOUNTER → 2025-09-24 09:59 | Outpatient (BNVA) | payer MEDICARE, MEDICAID, SELFPAY | PROVIDERS: PCP Family Medicine; Visit Provider Podiatrist Foot & Ankle Surgery | DX: S92.354D Nondisplaced fracture of fifth metatarsal bone, right foot, subsequent encounter for fracture with routine healing (principal); X58.XXXD Exposure to other specified factors, subsequent encounter | CPT/HCPCS: 73630; 99213 ==

== ENCOUNTER → 2025-10-06 13:38 | Outpatient (BNVA) | payer MEDICARE, MEDICAID, SELFPAY | PROVIDERS: PCP Family Medicine; Visit Provider Internal Medicine | DX: E78.5 Hyperlipidemia, unspecified (principal); I10 Essential (primary) hypertension; R06.09 Other forms of dyspnea; I42.8 Other cardiomyopathies | CPT/HCPCS: 99214 ==